=== PATIENT | male | born 1965 | race Caucasian/White ===

== ENCOUNTER 2019-03-04 11:20 | Emergency (ER) | payer OTHER ==
[~2019-03-04] VITALS: Ht 188 cm; Wt 134.4 kg
[2019-03-04] MEDS ORDERED: ELIQUIS5 MG PO (11:35)
[2019-03-04] MEDS ORDERED: LASIX20 M1 PO (11:36)
[2019-03-04] MEDS ORDERED: LISINOPRIL10 MG PO (11:36)
[2019-03-04 12:02] LABS: EOS # 0.3 (0.04-0.40); EOS % 3.9 % (0.0-4.0); HEMATOCRIT 47.3 % (42.0-52.0); HEMOGLOBIN 15.8 g/dL (13.5-18.0); MEAN CELL VOLUME 87 fl (78-100); MEAN CORPUSCULAR HEMOGLOBIN 29 pg (27-31); MEAN CORPUSCULAR HGB CONC 33 g/dL (33-37); MEAN PLATELET VOLUME 10.4 fl (7.4-10.4); MONO # 0.4 (0.20-0.80); NEU # 4.7 (1.40-6.50); PLATELET COUNT 199 K/mm3 (130-400); RED BLOOD COUNT 5.43 M/mm3 (4.20-5.60); RED CELL DISTRIBUTION WIDTH 12.7 % (11.5-14.5); WHITE BLOOD COUNT 7.5 K/mm3 (4.8-10.8)
[2019-03-04 12:33] LABS: ALT/SGPT 19 U/L (0-55); AST-SGOT 14 U/L (5-34); CALCIUM 9.6 mg/dL (8.4-10.2); CARBON DIOXIDE 25 mmol/L (22-29); GLUCOSE 185 mg/dL (75-110); POTASSIUM 4.1 mmol/L (3.5-5.1); SODIUM 138 mmol/L (136-145); TOTAL BILIRUBIN 0.3 mg/dL (0.2-1.2); TOTAL PROTEIN 7.4 g/dL (6.4-8.3); TROPONIN-I < 0.03 ng/mL (<0.030)
[2019-03-04 15:53] VITALS: BP 157/83
== END 2019-03-04 15:13 | disposition short-term general hospital (02) ==
LOC: ED 11:20
PROVIDERS: Nurse Practitioner Primary Care
DX: J90 Pleural effusion, not elsewhere classified (principal); I10 Essential (primary) hypertension; Z79.01 Long term (current) use of anticoagulants; Z86.718 Personal history of other venous thrombosis and embolism
CPT/HCPCS: J1650; Q9967

== ENCOUNTER → 2019-09-30 | Day surgery (SDC) | payer OTHER ==
[~2019-09-30] MED LIST: ELIQUIS5 MG PO; LASIX20 M1 PO; LISINOPRIL10 MG PO
== END | disposition home or self-care (01) ==
LOC: MSO 08:16
DX: Z12.11 Encounter for screening for malignant neoplasm of colon (principal); Z86.718 Personal history of other venous thrombosis and embolism; Z86.711 Personal history of pulmonary embolism; I10 Essential (primary) hypertension; Z79.01 Long term (current) use of anticoagulants; E11.9 Type 2 diabetes mellitus without complications; Z79.84 Long term (current) use of oral hypoglycemic drugs; I49.3 Ventricular premature depolarization; Z79.899 Other long term (current) drug therapy
CPT/HCPCS: 00811; J2704; J7030